=== PATIENT | female | born 1960 | race Caucasian/White ===

== ENCOUNTER 2018-12-28 09:51 | Emergency (ER) | payer OTHER ==
[~2018-12-28] VITALS: Ht 162.6 cm; Wt 63.5 kg
[~2018-12-28 09:51] MED LIST: CLEOCIN HCL150 MG PO
[2018-12-28] MEDS ORDERED: TOPROL XL50 M1 (10:20)
== END 2018-12-28 13:56 | disposition home or self-care (01) ==
LOC: ER 09:51
DX: B34.9 Viral infection, unspecified (principal)

== ENCOUNTER 2021-09-16 07:17 | Outpatient (CLI) | payer OTHER ==
[~2021-09-16 07:17] MED LIST changes: +TOPROL XL50 M1
== END 2021-09-16 07:26 | disposition home or self-care (01) ==
LOC: NUCLEAR 07:17
PROVIDERS: ATTEND Physical Medicine & Rehabilitation Hospice and Palliative Medicine
DX: M79.641 Pain in right hand (principal)
CPT/HCPCS: 78315; A9503